=== PATIENT | female | born 1990 | race Caucasian/White ===

== ENCOUNTER 2017-12-03 01:35 | Emergency (ER) | payer SELFPAY ==
[~2017-12-03] VITALS: Ht 162.6 cm; Wt 96.2 kg
[2017-12-03 02:12] LABS: HEMATOCRIT 38.1 % (36.0-46.0); HEMOGLOBIN 12.5 G/DL (11.9-15.5); MCH 29.1 PG (29.0-34.0); MCHC 32.8 G/DL (30.0-36.0); MCV 88.8 FL (83-99); PLATELET COUNT 269 K/uL (156-360); RBC DIS.WIDTH-CV 14.1 % (11.8-14.6); RBC DIS.WIDTH-SD 45.5 % (39-53); RED BLOOD COUNT 4.29 M/uL (3.80-5.20); WHITE BLOOD COUNT 7.8 K/uL (4.1-10.2)
[2017-12-03 02:22] LABS: CHLORIDE 104 mEq/L (99-109); SODIUM 137 mEq/L (136-147)
[2017-12-03 02:23] LABS: GLUCOSE 93 mg/dL (70-99)
[2017-12-03 02:27] LABS: CREATININE 0.8 mg/dL (0.6-1.3); GFR ESTIMATE (CALCULATED) > 59 mL/min/
[2017-12-03 02:28] LABS: UREA NITROGEN (BUN) 13 mg/dL (9-23)
[2017-12-03 02:33] VITALS: BP 126/87
== END 2017-12-03 02:50 | disposition home or self-care (01) ==
LOC: EME 01:35
PROVIDERS: Emergency Medicine
DX: N93.9 Abnormal uterine and vaginal bleeding, unspecified (principal)
CPT/HCPCS: 80048; 84702; 85027; 86900; 86901; 99281; 99284; J0780; J7030